=== PATIENT | male | born 1995 ===

== ENCOUNTER 2017-07-07 16:29 | Emergency (ER) | payer OTHER ==
[~2017-07-07] VITALS: Ht 188 cm; Wt 639.6 kg
[2017-07-07] MEDS ORDERED: BENZ100A PO (16:45)
[2017-07-07] MEDS ORDERED: Prednisone20 MG PO (16:45)
[2017-07-07] MEDS ORDERED: Polytrim Eye Dr10 ML BOTHEYES (16:46)
== END 2017-07-07 16:50 | disposition home or self-care (01) ==
LOC: ER 16:29
DX: J40 Bronchitis, not specified as acute or chronic (principal); G43.909 Migraine, unspecified, not intractable, without status migrainosus
CPT/HCPCS: 99283

== ENCOUNTER 2017-08-03 12:15 | Emergency (ER) | payer OTHER ==
[~2017-08-03] VITALS: Ht 188 cm; Wt 62.1 kg
[~2017-08-03 12:15] MED LIST: BENZ100A PO; Polytrim Eye Dr10 ML BOTHEYES; Prednisone20 MG PO
[2017-08-04] MEDS ORDERED: Prednisone20 MG PO (03:18)
[2017-08-04] MEDS ORDERED: Cleocin HCl150 MG PO (03:18)
== END 2017-08-03 13:56 | disposition home or self-care (01) ==
LOC: ER 12:15
DX: J02.9 Acute pharyngitis, unspecified (principal); G43.909 Migraine, unspecified, not intractable, without status migrainosus; Z90.89 Acquired absence of other organs
CPT/HCPCS: 87081; 87430; 99283

== ENCOUNTER 2017-08-04 02:46 | Emergency (ER) | payer OTHER ==
[~2017-08-04] VITALS: Ht 182.9 cm; Wt 62.1 kg
[2017-08-04] MEDS ORDERED: Cleocin HCl150 MG PO (03:18)
[2017-08-04] MEDS ORDERED: Prednisone20 MG PO (03:18)
== END 2017-08-04 03:31 | disposition home or self-care (01) ==
LOC: ER 02:46
DX: J36 Peritonsillar abscess (principal); Z79.2 Long term (current) use of antibiotics; Z79.52 Long term (current) use of systemic steroids
CPT/HCPCS: 99283